=== PATIENT | female | born 1950 | race Caucasian/White ===

== ENCOUNTER 2017-04-04 09:20 | Day surgery (SDC) | payer OTHER, MEDICARE ==
[~2017-04-04 09:20] MED LIST: ALBU8HFA2 INH; ALBU90OI INH; ALBU90OI6 INH; CIPR500 PO; DIAZ5 PO; ENAHYD PO; FAMO40 PO; GLYB2.5 PO; HYDACE5 PO; HYDHOMSY PO; INSULANI SC; METF500 PO; METPRE4DP PO; ONDA4 PO; PRED20 PO; PROACE100 PO; TRAM50 PO
== END 2017-04-04 14:30 | disposition home or self-care (01) ==
LOC: WOUND 09:20
PROC: 0HBMXZZ Excision of Right Foot Skin, External Approach (ICD-10-PCS; principal; 2017-04-04)
DX: Z48.00 Encounter for change or removal of nonsurgical wound dressing (principal); E11.621 Type 2 diabetes mellitus with foot ulcer; L89.893 Pressure ulcer of other site, stage 3
CPT/HCPCS: 87070; 87075; 87205; G0463

== ENCOUNTER 2017-04-11 14:24 | Day surgery (SDC) | payer OTHER, MEDICARE | END 2017-04-11 17:08 | disposition home or self-care (01) | LOC: WOUND 14:24 | DX: Z48.00 Encounter for change or removal of nonsurgical wound dressing (principal); E11.621 Type 2 diabetes mellitus with foot ulcer; L89.893 Pressure ulcer of other site, stage 3 | CPT/HCPCS: G0463 ==

== ENCOUNTER 2017-04-22 14:35 | Day surgery (SDC) | payer OTHER, MEDICARE | END 2017-04-22 22:56 | disposition home or self-care (01) | LOC: WOUND 14:35 | PROC: 0KBV0ZZ Excision of Right Foot Muscle, Open Approach (ICD-10-PCS; principal; 2017-04-22) | DX: Z48.00 Encounter for change or removal of nonsurgical wound dressing (principal); E11.621 Type 2 diabetes mellitus with foot ulcer; L89.893 Pressure ulcer of other site, stage 3 | CPT/HCPCS: G0463 ==

== ENCOUNTER 2017-04-29 14:40 | Day surgery (SDC) | payer OTHER, MEDICARE | END 2017-04-29 17:29 | disposition home or self-care (01) | LOC: WOUND 14:40 | DX: Z48.00 Encounter for change or removal of nonsurgical wound dressing (principal); E11.621 Type 2 diabetes mellitus with foot ulcer; L89.893 Pressure ulcer of other site, stage 3 | CPT/HCPCS: G0463 ==

== ENCOUNTER 2017-05-06 10:09 | Day surgery (SDC) | payer OTHER, MEDICARE | END 2017-05-06 23:25 | disposition home or self-care (01) | LOC: WOUND 10:09 | PROC: 0HBMXZZ Excision of Right Foot Skin, External Approach (ICD-10-PCS; principal; 2017-05-06) | DX: Z48.00 Encounter for change or removal of nonsurgical wound dressing (principal); E11.621 Type 2 diabetes mellitus with foot ulcer; L89.893 Pressure ulcer of other site, stage 3 ==

== ENCOUNTER 2017-05-09 08:35 | Day surgery (SDC) | payer OTHER, MEDICARE ==
[~2017-05-09] VITALS: Ht 170.2 cm; Wt 114.0 kg
[2017-05-09] MEDS ORDERED: PREG75 (09:00)
[2017-05-09] MEDS ORDERED: CIPR750 (09:00)
[2017-05-09] MEDS ORDERED: Sulfamethoxazo1 EAC4 (09:01)
== END 2017-05-09 11:59 | disposition home or self-care (01) ==
LOC: ORSCSDS 08:35
PROVIDERS: Podiatrist Foot & Ankle Surgery
PROC: 0Y6U0Z0 Detachment at Left 3rd Toe, Complete, Open Approach (ICD-10-PCS; principal; 2017-05-09 12:30)
DX: M86.9 Osteomyelitis, unspecified (principal); E11.9 Type 2 diabetes mellitus without complications; E78.5 Hyperlipidemia, unspecified; I10 Essential (primary) hypertension; G47.33 Obstructive sleep apnea (adult) (pediatric); Z79.82 Long term (current) use of aspirin; Z79.84 Long term (current) use of oral hypoglycemic drugs; Z79.899 Other long term (current) drug therapy
CPT/HCPCS: 82947; 88305; 88311; J0171; J0690; J2250; J3010; J7120

== ENCOUNTER 2017-05-23 00:41 | Day surgery (SDC) | payer OTHER, MEDICARE ==
[~2017-05-23 00:41] MED LIST changes: +CIPR750; +PREG75; +Sulfamethoxazo1 EAC4
== END 2017-05-23 22:00 | disposition home or self-care (01) ==
LOC: WOUND 00:41
DX: Z48.00 Encounter for change or removal of nonsurgical wound dressing (principal); E11.621 Type 2 diabetes mellitus with foot ulcer; L89.893 Pressure ulcer of other site, stage 3
CPT/HCPCS: G0463

== ENCOUNTER 2017-08-04 13:01 | Day surgery (SDC) | payer OTHER, MEDICARE ==
[~2017-08-04] VITALS: Ht 170.2 cm; Wt 114.4 kg
[2017-08-04] MEDS ORDERED: ASPI325 PO (14:03)
[2017-08-04] MEDS ORDERED: ALLO300 PO (14:03)
[2017-08-04] MEDS ORDERED: Flonase 0.05% N16 GM (14:03)
[2017-08-04] MEDS ORDERED: ALBU2.5V5 (14:04)
== END 2017-08-04 18:32 | disposition home or self-care (01) ==
LOC: ORSCSDS 13:01
PROVIDERS: Podiatrist Foot & Ankle Surgery
PROC: 0SGM04Z Fusion of Right Metatarsal-Phalangeal Joint with Internal Fixation Device, Open Approach (ICD-10-PCS; principal; 2017-08-04 14:30)
PROC: 0L8N0ZZ Division of Right Lower Leg Tendon, Open Approach (ICD-10-PCS; principal; 2017-08-04 14:30)
DX: M20.11 Hallux valgus (acquired), right foot (principal); M21.6X1 Other acquired deformities of right foot; E11.621 Type 2 diabetes mellitus with foot ulcer; L97.519 Non-pressure chronic ulcer of other part of right foot with unspecified severity; I10 Essential (primary) hypertension; E78.5 Hyperlipidemia, unspecified; G47.33 Obstructive sleep apnea (adult) (pediatric); E66.01 Morbid (severe) obesity due to excess calories; Z68.41 Body mass index [BMI] 40.0-44.9, adult; Z79.4 Long term (current) use of insulin; Z79.82 Long term (current) use of aspirin; Z79.899 Other long term (current) drug therapy
CPT/HCPCS: 82947; C1713; J0171; J0690; J2250; J2710; J3010; J7120

== ENCOUNTER 2017-08-05 00:43 | Emergency (ER) | payer OTHER, MEDICARE ==
[~2017-08-05] VITALS: Ht 170.2 cm; Wt 114.3 kg
[~2017-08-05 00:43] MED LIST changes: +ALBU2.5V5; +ALLO300 PO; +ASPI325 PO; +Flonase 0.05% N16 GM
[2017-08-05 02:35] LABS: PCO2 Arterial 35.2 mmHg (35-45); PO2 Arterial 66.5 mmHg (80-100); pH Blood Arterial 7.42 (7.35-7.45)
[2017-08-05 02:58] LABS: BASOPHILS ABSOLUTE AUTO 0.05 K/mm3 (0.00-0.23); BASOPHILS PERCENT AUTO 0 % (0-2); EOSINOPHILS ABSOLUTE AUTO 0.05 K/mm3 (0.00-0.68); EOSINOPHILS PERCENT AUTO 0 % (0-6); Hematocrit 35.6 % (33.0-51.0); Hemoglobin 11.6 g/dL (11.5-16.0); IMMATURE GRAN ABSOLUTE AUTO 0.08 K/mm3 (0.00-0.10); IMMATURE GRAN PERCENT AUTO 1 % (0-1); LYMPHOCYTES ABSOLUTE AUTO 1.58 K/mm3 (0.84-5.20); LYMPHOCYTES PERCENT AUTO 13 % (21-46); MONOCYTES PERCENT AUTO 7 % (4-13); Mean Corpuscular HGB 27.3 pg (26.0-34.0); Mean Corpuscular HGB Conc 32.6 g/dL (31.5-36.5); Mean Corpuscular Volume 84 fL (80-100); Mean Platelet Volume 10.6 fL (9.1-12.4); NEUTROPHILS ABSOLUTE AUTO 9.73 K/mm3 (1.96-9.15); NEUTROPHILS PERCENT AUTO 79 % (41-73); Platelet Count 374 K/mm3 (150-400); RDW Coefficient Variation 15.9 % (11.7-14.2); RDW Standard Deviation 48.2 fL (35.1-46.3); Red Blood Cell Count 4.25 M/mm3 (3.80-5.20); White Blood Cell Count 12.39 K/mm3 (4.00-11.30)
[2017-08-05 03:07] LABS: Albumin, Blood 3.3 g/dL (3.4-5.0); Albumin/Globulin Ratio 0.8 (0.8-1.8); Bilirubin, Total 0.2 mg/dL (0.1-1.0); Bun/Creatinine Ratio 23.6 (12.0-20.0); Calcium, Blood 8.8 mg/dL (8.5-10.1); Creatinine, Blood 1.06 mg/dL (0.40-1.00); Globulin, Blood 4.1 g/dL (2.2-4.0); Potassium, Blood 4.5 mmol/L (3.5-5.5); Total Protein, Blood 7.4 g/dL (6.4-8.2)
== END 2017-08-05 05:30 | disposition home or self-care (01) ==
LOC: ER 00:43
PROVIDERS: Emergency Medicine
DX: J02.9 Acute pharyngitis, unspecified (principal); E11.9 Type 2 diabetes mellitus without complications; I10 Essential (primary) hypertension; Z88.1 Allergy status to other antibiotic agents; Z88.5 Allergy status to narcotic agent; Z79.899 Other long term (current) drug therapy; Z79.4 Long term (current) use of insulin; Z79.82 Long term (current) use of aspirin
CPT/HCPCS: 36415; 36600; 70490; 71046; 80053; 82803; 85025; 93005; 93010; 96374; 96375; 99284; J2405; J2930; J3010

== ENCOUNTER → 2022-08-01 | Outpatient (CLI) | payer BC, MEDICARE ==
[2022-08-01 21:07] LABS: Microalb/Creat Ratio UR, Rand 20.709 mg/g (0.000-30.000); Microalbumin, Random Urine 26.3 mg/L (0.000-20.000)
== END | disposition home or self-care (01) ==
LOC: LAB SHORT 14:30
PROVIDERS: Physician Assistant Medical
DX: E11.65 Type 2 diabetes mellitus with hyperglycemia (principal); E11.43 Type 2 diabetes mellitus with diabetic autonomic (poly)neuropathy
CPT/HCPCS: 82043; 82570

== ENCOUNTER → 2024-01-01 | Outpatient (CLI) | payer BC, MEDICARE ==
[2024-01-01 16:13] LABS: BASOPHILS ABSOLUTE AUTO 0.03 K/mm3 (0.00-0.23); BASOPHILS PERCENT AUTO 0 % (0-2); EOSINOPHILS ABSOLUTE AUTO 0.16 K/mm3 (0.00-0.68); EOSINOPHILS PERCENT AUTO 2 % (0-6); Hematocrit 39.2 % (33.0-51.0); Hemoglobin 13.2 g/dL (11.5-16.0); IMMATURE GRAN ABSOLUTE AUTO 0.04 K/mm3 (0.00-0.10); IMMATURE GRAN PERCENT AUTO 0 % (0-1); LYMPHOCYTES ABSOLUTE AUTO 2.66 K/mm3 (0.84-5.20); LYMPHOCYTES PERCENT AUTO 26 % (21-46); MONOCYTES ABSOLUTE AUTO 0.71 K/mm3 (0.16-1.47); MONOCYTES PERCENT AUTO 7 % (4-13); Mean Corpuscular HGB 28.5 pg (26.0-34.0); Mean Corpuscular HGB Conc 33.7 g/dL (31.5-36.5); Mean Corpuscular Volume 85 fL (80-100); Mean Platelet Volume 10.8 fL (9.1-12.4); NEUTROPHILS ABSOLUTE AUTO 6.81 K/mm3 (1.96-9.15); NEUTROPHILS PERCENT AUTO 65 % (41-73); Platelet Count 324 K/mm3 (150-400); RDW Coefficient Variation 14.4 % (11.7-14.2); RDW Standard Deviation 44.3 fL (35.1-46.3); Red Blood Cell Count 4.63 M/mm3 (3.80-5.20); White Blood Cell Count 10.41 K/mm3 (4.00-11.30)
[2024-01-01 16:24] LABS: Albumin, Blood 3.3 g/dL (3.4-5.0); Albumin/Globulin Ratio 0.9 (0.8-1.8); Bilirubin, Total 0.3 mg/dL (0.1-1.0); Bun/Creatinine Ratio 17.6 (12.0-20.0); Calcium, Blood 9.1 mg/dL (8.5-10.1); Creatinine, Blood 1.02 mg/dL (0.40-1.00); Globulin, Blood 3.7 g/dL (2.2-4.0); Potassium, Blood 4.4 mmol/L (3.5-5.5)
== END | disposition home or self-care (01) ==
LOC: LAB 16:09 → LAB SHORT 16:09
PROVIDERS: Physician Assistant
DX: R10.32 Left lower quadrant pain (principal); N39.0 Urinary tract infection, site not specified
CPT/HCPCS: 80053; 83690; 85025; 87086

== ENCOUNTER 2024-01-17 12:35 | Emergency (ER) | payer BC, MEDICARE ==
[~2024-01-17] VITALS: Ht 170.2 cm; Wt 117.5 kg
[2024-01-17 13:22] LABS: BASOPHILS ABSOLUTE AUTO 0.05 K/mm3 (0.00-0.23); BASOPHILS PERCENT AUTO 1 % (0-2); EOSINOPHILS ABSOLUTE AUTO 0.11 K/mm3 (0.00-0.68); EOSINOPHILS PERCENT AUTO 1 % (0-6); Hematocrit 41.2 % (33.0-51.0); Hemoglobin 13.7 g/dL (11.5-16.0); IMMATURE GRAN ABSOLUTE AUTO 0.04 K/mm3 (0.00-0.10); IMMATURE GRAN PERCENT AUTO 0 % (0-1); LYMPHOCYTES ABSOLUTE AUTO 2.05 K/mm3 (0.84-5.20); LYMPHOCYTES PERCENT AUTO 22 % (21-46); MONOCYTES ABSOLUTE AUTO 0.57 K/mm3 (0.16-1.47); MONOCYTES PERCENT AUTO 6 % (4-13); Mean Corpuscular HGB 28.1 pg (26.0-34.0); Mean Corpuscular HGB Conc 33.3 g/dL (31.5-36.5); Mean Corpuscular Volume 84 fL (80-100); NEUTROPHILS PERCENT AUTO 70 % (41-73); Platelet Count 339 K/mm3 (150-400); RDW Standard Deviation 43.1 fL (35.1-46.3); Red Blood Cell Count 4.88 M/mm3 (3.80-5.20); White Blood Cell Count 9.52 K/mm3 (4.00-11.30)
[2024-01-17 13:43] LABS: Albumin, Blood 3.4 g/dL (3.4-5.0); Albumin/Globulin Ratio 0.9 (0.8-1.8); Bilirubin, Total 0.4 mg/dL (0.1-1.0); Bun/Creatinine Ratio 22.8 (12.0-20.0); Calcium, Blood 9.1 mg/dL (8.5-10.1); Creatinine, Blood 1.01 mg/dL (0.40-1.00); Globulin, Blood 3.6 g/dL (2.2-4.0); Potassium, Blood 4.4 mmol/L (3.5-5.5)
[2024-01-17] MEDS ORDERED: Ondansetron HCl 2 MG / ML 2ML Vial IV ONE (15:25)
[2024-01-17] MEDS ORDERED: FentaNYL Citrate 50 MCG/ML 2 ML Injection IV ONE (15:25)
[2024-01-17 16:00] VITALS: BP 135/65
[2024-01-17] MEDS ORDERED: HYDR1TAB94 PO (16:02)
== END 2024-01-17 16:35 | disposition home or self-care (01) ==
LOC: ER 12:35
PROVIDERS: Student in an Organized Health Care Education/Training Program
DX: K80.70 Calculus of gallbladder and bile duct without cholecystitis without obstruction (principal); Z88.5 Allergy status to narcotic agent; Z88.1 Allergy status to other antibiotic agents; Z79.899 Other long term (current) drug therapy; Z79.84 Long term (current) use of oral hypoglycemic drugs; Z79.4 Long term (current) use of insulin; Z79.82 Long term (current) use of aspirin; E11.9 Type 2 diabetes mellitus without complications; I10 Essential (primary) hypertension
CPT/HCPCS: 76705; 80053; 83690; 84484; 85025; 93005; 93010; 96374; 96375; 99284-25; J2405; J3010

== ENCOUNTER 2024-07-01 09:04 | Day surgery (SDC) | payer BC, MEDICARE ==
[~2024-07-01] VITALS: Ht 170.2 cm; Wt 114.4 kg
[~2024-07-01 09:04] MED LIST changes: +BASAGLAR K100 UNIT/1 SC; +HYDR1TAB94 PO; -INSULANI SC; +Lactated Ringer's 1,000 ML IV SCH
[2024-07-01 09:59] VITALS: BP 181/72
--- NOTE | 2024-07-01 10:13 | NUR ---
History, Chart, Medications and Allergies reviewed before start of procedure. Lungs clear T/O to Auscultation. Patient confirms NPO status and agrees with scheduled surgery. Patient states colon prep results clear BUT REPORTS ON "POCKET" OF BROWN THIS MORNING. Pre-Op teaching done. Pt verbalizes understanding.
[2024-07-01] MEDS ORDERED: propofoL 40 ML IV ONE (10:36)
--- NOTE | 2024-07-01 10:49 | NUR ---
07/01/24 1049 Myla Johnson History, Chart, Medications and Allergies reviewed before start of procedure.MONITOR INTACT WITH CONTINUOUS PULSE OXIMETRY, CONTINUOUS END TITAL CO2, 3-LEAD EKG AND INTERMITTENT BLOOD PRESSURE.3-LEAD EKG REVIEWED WITH PHYSICIAN PRIOR TO START OF PROCEDURE.O2 VIA POM INTACT THROUGHOUT SEDATION/PROCEDURE.Bite Block Placed. DR. SALAZAR PROVIDING MAC.
[2024-07-01 11:36] VITALS: BP 138/61
[2024-07-01 11:45] VITALS: BP 139/71
--- NOTE | 2024-07-01 12:03 | NUR ---
Up with SBA assist. Slightly stable on feet. Discharge instructions reviewed with patient. Patient verbalizes understanding. Copy given to patient to take home. Patient States Post-Procedure ride home has been arranged. Discharged via wheelchair to private car for ride home.
== END 2024-07-01 11:59 | disposition home or self-care (01) ==
LOC: ORSCMMR 09:04 → ORD 10:30 → ORSCMMR 10:30
PROVIDERS: Internal Medicine Gastroenterology
PROC: 0DBH8ZX Excision of Cecum, Via Natural or Artificial Opening Endoscopic, Diagnostic (ICD-10-PCS; principal; 2024-07-01 10:30)
PROC: 0DB78ZX Excision of Stomach, Pylorus, Via Natural or Artificial Opening Endoscopic, Diagnostic (ICD-10-PCS; principal; 2024-07-01 10:30)
PROC: 0DBN8ZX Excision of Sigmoid Colon, Via Natural or Artificial Opening Endoscopic, Diagnostic (ICD-10-PCS; principal; 2024-07-01 10:30)
PROC: 0DB48ZX Excision of Esophagogastric Junction, Via Natural or Artificial Opening Endoscopic, Diagnostic (ICD-10-PCS; principal; 2024-07-01 10:30)
PROC: 0DB98ZX Excision of Duodenum, Via Natural or Artificial Opening Endoscopic, Diagnostic (ICD-10-PCS; principal; 2024-07-01 10:30)
PROC: 0DBL8ZX Excision of Transverse Colon, Via Natural or Artificial Opening Endoscopic, Diagnostic (ICD-10-PCS; principal; 2024-07-01 10:30)
DX: R10.33 Periumbilical pain (principal); R10.13 Epigastric pain; K29.80 Duodenitis without bleeding; K21.9 Gastro-esophageal reflux disease without esophagitis; D12.0 Benign neoplasm of cecum; K63.5 Polyp of colon; K57.30 Diverticulosis of large intestine without perforation or abscess without bleeding; I10 Essential (primary) hypertension; E11.9 Type 2 diabetes mellitus without complications; Z79.4 Long term (current) use of insulin; Z79.899 Other long term (current) drug therapy; E66.01 Morbid (severe) obesity due to excess calories; Z68.41 Body mass index [BMI] 40.0-44.9, adult
CPT/HCPCS: 82947; 88305; 88342; J2704; J7120

== ENCOUNTER 2025-01-22 14:13 | Inpatient (IN) | payer MEDICARE, OTHER ==
[~2025-01-22] VITALS: Ht 170.2 cm; Wt 113.7 kg
[~2025-01-22 14:13] MED LIST changes: -Lactated Ringer's 1,000 ML IV SCH
[2025-01-22 14:45] LABS: BASOPHILS ABSOLUTE AUTO 0.04 K/mm3 (0.00-0.23); BASOPHILS PERCENT AUTO 0 % (0-2); EOSINOPHILS ABSOLUTE AUTO 0.23 K/mm3 (0.00-0.68); EOSINOPHILS PERCENT AUTO 2 % (0-6); Hematocrit 44.5 % (33.0-51.0); Hemoglobin 15.0 g/dL (11.5-16.0); IMMATURE GRAN ABSOLUTE AUTO 0.03 K/mm3 (0.00-0.10); IMMATURE GRAN PERCENT AUTO 0 % (0-1); LYMPHOCYTES ABSOLUTE AUTO 2.64 K/mm3 (0.84-5.20); LYMPHOCYTES PERCENT AUTO 25 % (21-46); MONOCYTES ABSOLUTE AUTO 0.65 K/mm3 (0.16-1.47); MONOCYTES PERCENT AUTO 6 % (4-13); Mean Corpuscular HGB Conc 33.7 g/dL (31.5-36.5); Mean Corpuscular Volume 85 fL (80-100); NEUTROPHILS ABSOLUTE AUTO 6.84 K/mm3 (1.96-9.15); NEUTROPHILS PERCENT AUTO 66 % (41-73); NRBC ABSOLUTE 0.00 K/mm3 (0.00-0.02); NRBC Auto 0.0 /100 WBC (0.0-0.2); Platelet Count 346 K/mm3 (150-400); RDW Coefficient Variation 14.1 % (11.7-14.2); RDW Standard Deviation 43.8 fL (35.1-46.3)
[2025-01-22 15:03] LABS: Alanine Aminotransfer (ALT/SGP 23.0 U/L (12-78); Albumin, Blood 3.6 g/dL (3.4-5.0); Albumin/Globulin Ratio 1.0 (0.8-1.8); Anion Gap 9.0 mmol/L (3-11); Aspartate Aminotrans (AST/SGOT 17.0 U/L (12-37); Bilirubin, Total 0.4 mg/dL (0.1-1.0); Blood Urea Nitrogen 23.0 mg/dL (8-24); CO2, Blood 25.0 mmol/L (21-32); Calcium, Blood 9.0 mg/dL (8.5-10.1); Chloride, Blood 106.0 mmol/L (98-108); Creatinine, Blood 0.88 mg/dL (0.40-1.00); Globulin, Blood 3.7 g/dL (2.2-4.0); Glucose, Blood 259.0 mg/dL (70-99); Potassium, Blood 4.1 mmol/L (3.5-5.5); Sodium, Blood 136.0 mmol/L (136-145); Total Protein, Blood 7.3 g/dL (6.4-8.2)
[2025-01-22] MEDS ORDERED: HydrALAZINE HCl 20 MG / ML 1ML Vial IV PRN ×2 (16:25→18:50)
[2025-01-22] MEDS ORDERED: Insulin Regular 100 UNIT/ML 10ML Vial SC SCH (16:30)
[2025-01-22] MEDS ORDERED: FLU VACC TS2025(65UP)/MF59C/PF 45 MCG/0.5 ML SYRINGE IM SCH (16:40)
[2025-01-22 17:39] LABS: CHOL/HDL RATIO 5.3; Cholesterol 279 mg/dL (50-200); HDL Cholesterol 53 mg/dL (>39); LDL/HDL RATIO 3.6; Low Density Lipoprotein Chol 191 mg/dL (0-110); Triglycerides 176 mg/dL (30-160); Very Low Density Lipoprot Chol 35 mg/dL (6-32)
[2025-01-22 18:30] VITALS: BP 208/71
--- NOTE | 2025-01-22 19:18 | NUR ---
ADMISSION NOTE: PATIENT ARRIVES TO ROOM VIA GURNEY AT 1805 FROM ER FOR DX'S OF CVA. PATIENT TRANSFERRED TO BATHROOM c 1 ASSIST, GAITBELT AND FWW. PATIENT ADMISSION, MEDRIC AND SKIN ASSESSMENT COMPLETED. PATIENT DENIES CP/PRESSURE, SOB, N/V AND DIZZINESS. PATIENT ADMISSION VITALS TAKEN SBP-208/71, HR-[address] ROJO[address] RECEIVED ORDER FOR PERMISSIVE HYPERTENSIVE AND TO GIVE IV HYDRALAZINE c SBP MORE THAN 200. PATIENT ON TELE, SR HR IN THE 80'S BPM. PATIENT REPORTS NUMBNESS TO R SIDE FACE, R HAND AND FEET. PATIENT STRENGTH ARE EQUAL TO ALL EXTREMITIES. PATIENT A/OX4, ANSWER TO QUESTIONS APPROPRIATELY, FOLLOWING COMMANDS AND COOPERATIVE c CARE. PATIENT HAS PIV TO RAC SL. BED IN LOWEST POSITION. CALL LIGHT IN REACH. BEDSIDE REPORTS GIVEN TO AMIE RN'S.
[2025-01-22 19:37] VITALS: BP 178/69
[2025-01-22 23:06] VITALS: BP 160/90
[2025-01-23 03:16] VITALS: BP 161/63
[2025-01-23 04:50] LABS: BASOPHILS ABSOLUTE AUTO 0.04 K/mm3 (0.00-0.23); BASOPHILS PERCENT AUTO 0 % (0-2); EOSINOPHILS ABSOLUTE AUTO 0.27 K/mm3 (0.00-0.68); EOSINOPHILS PERCENT AUTO 3 % (0-6); Hematocrit 43.1 % (33.0-51.0); Hemoglobin 14.4 g/dL (11.5-16.0); IMMATURE GRAN ABSOLUTE AUTO 0.04 K/mm3 (0.00-0.10); IMMATURE GRAN PERCENT AUTO 0 % (0-1); LYMPHOCYTES ABSOLUTE AUTO 3.00 K/mm3 (0.84-5.20); LYMPHOCYTES PERCENT AUTO 29 % (21-46); MONOCYTES ABSOLUTE AUTO 0.82 K/mm3 (0.16-1.47); MONOCYTES PERCENT AUTO 8 % (4-13); Mean Corpuscular HGB Conc 33.4 g/dL (31.5-36.5); Mean Corpuscular Volume 85 fL (80-100); NEUTROPHILS ABSOLUTE AUTO 6.05 K/mm3 (1.96-9.15); NEUTROPHILS PERCENT AUTO 59 % (41-73); NRBC ABSOLUTE 0.00 K/mm3 (0.00-0.02); NRBC Auto 0.0 /100 WBC (0.0-0.2); Platelet Count 330 K/mm3 (150-400); RDW Coefficient Variation 14.2 % (11.7-14.2); RDW Standard Deviation 44.0 fL (35.1-46.3)
[2025-01-23 05:11] LABS: Anion Gap 9.0 mmol/L (3-11); Blood Urea Nitrogen 18.0 mg/dL (8-24); CO2, Blood 24.0 mmol/L (21-32); Calcium, Blood 9.0 mg/dL (8.5-10.1); Chloride, Blood 109.0 mmol/L (98-108); Creatinine, Blood 0.74 mg/dL (0.40-1.00); Glucose, Blood 134.0 mg/dL (70-99); Potassium, Blood 3.7 mmol/L (3.5-5.5); Sodium, Blood 138.0 mmol/L (136-145)
[2025-01-23 07:37] VITALS: BP 174/69
[2025-01-23] MEDS ORDERED: Enoxaparin 40 MG/0.4 ML SYR SC SCH (09:00)
[2025-01-23 11:22] VITALS: BP 170/74
[2025-01-23 15:05] VITALS: BP 140/72
[2025-01-23] MEDS ORDERED: Magnesium Hydroxide Conc 10 ML UDC PO PRN (17:25)
[2025-01-23] MEDS ORDERED: Insulin Glargine 100 Unit/ML 3 ML SYR SC SCH (17:26)
--- NOTE | 2025-01-23 18:14 | NUR ---
END OF SHIFT NOTE PATIENT HAD SOME ELEVATED BLOOD PRESSURES TODAY, TREATED BY EMAR,BOWEL CARE STARTED ALSO. PATIENT AT BEDSIDE EATING DINNER WITH FAMILY PRESENT IN THE ROOM. TALKED ABOUT POSSIBLE D/C TOMORROW. MRI DONE TODAY. PATIENT AMBULATED TO BATHROOM WITH FWW AND 1PERSON ASSIST. PATIENT REMAINS A&OX3. CALL LIGHT IN REACH.
[2025-01-23 19:47] VITALS: BP 164/71
[2025-01-23 23:46] VITALS: BP 146/54
[2025-01-24 03:22] VITALS: BP 117/64
--- NOTE | 2025-01-24 03:53 | NUR ---
NIH SCORE ALERT THIS RN ALERTED NIGHT DOC OF CHANGE FROM LAST NOC SHIFT, DOCTOR INFORMED THIS RN WAS TOLD TO PASS TO ONCOMING PRIMARY DAY DOCTOR OF CHANGES. REASSESSED LATER IN SHIFT ACCORDING TO PROTOCOL, IS NOW 5 POINTS HIGHER. NEW ENVIRONMENTAL CONSERVATION OFFICER DOCTOR (CYNDI) NOTIFIED. WILL CONTINUE TO ASSESS.
--- NOTE | 2025-01-24 05:47 | NUR ---
SHIFT SUMMARY PATIENT WAS A&OX3 AT START OF SHIFT, DURING A NIH STROKE SCALE PATIENT BECAME ONLY ORIENTED TO SELF, NIH SCORE HAD RAISED SINCE LAST NOC SHIFT, LET FIRST DOCUMENTATION LEAD DOC KNOW DURING A CALL ALONG WITH CONSTIPATION THAT WAS CAUSING THE PATIENT TO FEEL "ILL." PATIENT THEN HAD A SMALL MOVEMENT AND FELT MUCH "BETTER." LATER IN SHIFT NIH STROKE SCALE JUMPED BY 5 POINTS TO A TOTAL OF 14. CALL DOCTOR CYNDI AND THE DOCTOR CAME UP AND ASSESSED AND ORDERED A STAT CT TO RULE OUT HEMMORRHAGIC STROKE, DOCTOR DE LA GARZA CALLED AND NO EVIDENCE OF EVOLVING HEMMORRHAGIC STROKE. PATIENT IS NOW RESTING AT NSR 85 WITH NO EVIDENCE OF DISTRESS. PATIENT HAS BECOME A 2STBA DURING OUR SHIFT DUE TO ORIENTATION AND WEAKNESS. BED ALARM IS ON, CALL LIGHT IS WITHIN REACH, ABLE TO MAKE NEEDS KNOWN AT THIS TIME, PATIENT CALLS APPROPRIATELY. BED ALARM IS ON DUE TO POTENTIAL CONFUSION ISSUES. BED RAILS UP X3, BED AT LOWEST POSITION.
[2025-01-24 07:12] LABS: BASOPHILS ABSOLUTE AUTO 0.07 K/mm3 (0.00-0.23); BASOPHILS PERCENT AUTO 1 % (0-2); EOSINOPHILS ABSOLUTE AUTO 0.32 K/mm3 (0.00-0.68); EOSINOPHILS PERCENT AUTO 3 % (0-6); Hematocrit 42.3 % (33.0-51.0); Hemoglobin 14.1 g/dL (11.5-16.0); IMMATURE GRAN ABSOLUTE AUTO 0.03 K/mm3 (0.00-0.10); IMMATURE GRAN PERCENT AUTO 0 % (0-1); LYMPHOCYTES ABSOLUTE AUTO 2.93 K/mm3 (0.84-5.20); LYMPHOCYTES PERCENT AUTO 31 % (21-46); MONOCYTES ABSOLUTE AUTO 0.77 K/mm3 (0.16-1.47); MONOCYTES PERCENT AUTO 8 % (4-13); Mean Corpuscular HGB Conc 33.3 g/dL (31.5-36.5); Mean Corpuscular Volume 84 fL (80-100); NEUTROPHILS ABSOLUTE AUTO 5.28 K/mm3 (1.96-9.15); NEUTROPHILS PERCENT AUTO 56 % (41-73); NRBC ABSOLUTE 0.00 K/mm3 (0.00-0.02); NRBC Auto 0.0 /100 WBC (0.0-0.2); Platelet Count 304 K/mm3 (150-400); RDW Coefficient Variation 14.2 % (11.7-14.2); RDW Standard Deviation 43.6 fL (35.1-46.3)
[2025-01-24 07:27] VITALS: BP 147/65
[2025-01-24 07:29] LABS: Prothrombin Time Results 11.6 Sec (9.7-11.5)
[2025-01-24 07:42] LABS: Anion Gap 10.0 mmol/L (3-11); Blood Urea Nitrogen 24.0 mg/dL (8-24); CO2, Blood 24.0 mmol/L (21-32); Calcium, Blood 8.9 mg/dL (8.5-10.1); Chloride, Blood 108.0 mmol/L (98-108); Creatinine, Blood 0.85 mg/dL (0.40-1.00); Glucose, Blood 133.0 mg/dL (70-99); Potassium, Blood 3.7 mmol/L (3.5-5.5); Sodium, Blood 138.0 mmol/L (136-145)
[2025-01-24 11:45] VITALS: BP 136/68
--- NOTE | 2025-01-24 15:38 | NUR ---
Patient is lying in bed and alert. She tells me about the strokes that she has had and the symptoms that she displays. She then talks at length about the of her spouse, Jose, her sister Nakia, her dad, her other sister and her brother all in the last couple of yrs. She is tearful at times. She finds comfort in her abel and her two grown sons. She tells me that she has good support but struggles with those losses. We explored healthy ways to grieve, ways to find meaning and ways reframe her current situation. I provided therapeutic listening, grief support and prayer. The patient responded well and showed signs of catharsis and greater peaece. I will continue to remain available to the patient and family.
[2025-01-24 15:48] VITALS: BP 145/70
--- NOTE | 2025-01-24 18:50 | NUR ---
THIS CASTING TESTER HAS REVIEWED AND AGREES WITH ALL NOTES AND ASSESSMENTS BY HEYDI STRATTON.
--- NOTE | 2025-01-24 18:50 | NUR ---
THIS ENVIRONMENTAL FIELD TEAM MEMBER HAS REVIEWED AND AGREES WITH ALL NOTES AND ASSESSMENTS BY HEYDI STRATTON.
--- NOTE | 2025-01-24 19:11 | NUR ---
SHIFT SUMMARY; PT A/OX3-4 AND 2 PERSON ASSIST TO BEDSIDE COMMODE AND POSITIONING. PT MEDICATED PER EMAR. ENEMA GIVEN AND AFFECTIVE. OT/SPEECH THERAPY WORKED WITH PT. SEE ASSESSMENT NOTES. THOMAS VISITED PT DUE TO EMOTIONAL DISTRESS W/ HER CURRENT SITUATION. JOSHUA, DAUGHTER OF PT HAS CONCERNS OF PT BEING ADMITTED TO SNF. CASE MANAGEMENT TO BE NOTIFIED. VSS. BEDLIGHT IN LOW POSITION WITH ALARM ON. CALL LIGHT WITHIN REACH.
[2025-01-24 20:26] VITALS: BP 163/62
[2025-01-24 20:29] VITALS: BP 153/53
[2025-01-25 00:17] VITALS: BP 150/62
[2025-01-25 04:04] VITALS: BP 118/88
--- NOTE | 2025-01-25 04:34 | NUR ---
SHIFT SUMMARY PATIENT A&OX 1-4 T/O SHIF, NEW NIH SCORE OF 12 AND NEW HEADACHE, DOCTOR MADE AWARE TO NEW CHANGES. WILL CONTINUE TO MONITOR, PATIENT HAS BEEN UP TO USE THE RESTROOM, ABLE TO MAKE NEEDS KNOWN, CALL LIGHT WITHIN REACH, BED RAILS UP X3, BED AT LOWEST POSITION, BED ALARM IS ON. PATIENT SLEPT SOLIDLY T/O SHIFT.
[2025-01-25 07:32] VITALS: BP 146/74
[2025-01-25 14:28] VITALS: BP 138/56
--- NOTE | 2025-01-25 16:59 | NUR ---
PATIENT UP TO CHAIR FOR MEALS AND THEN TO BED FOR REST. PATIENT WENT THRU PHASES DURING THIS SHIFT REMEMBERING AND ABLE TO ANSWER QUESTIONS APPROPRIATELY THEN FORGET OTHER TIMES. PATIENTS SISTER IS VERY ADIMENT THAT PATIENT DOES NOT GO TO REHAB. SISTER HAS CALLED THIS NURSE A FEW TIMES TODAY AND LEFT A MESSAGE STATING PATIENT BASICALLY NEEDS TO GO HOME. PATIENTS SISTER HAS CALLED THE PATIENT MULTIPLE TIMES TODAY WELL TELLING PATIENT "YOU TELL THEM YOU DO NOT NEED TO GO TO REHAB, YOU WANT TO GO HOME YOUR SON CAN CARE FOR YOU". PATIENTS SON CAME IN TODAY AND WAS UPSET THAT STAFF WOULD NOT GIVE PT PEPSI AND REFUSED DIET PEPSI. SON ASKED IF PT COULD EAT OUTSIDE SOURCED FOOD. THIS RN STATED YES BUT DIABETIC FOODS PT IS DIABETIC. SON BROUGHT PT BACK DOUGLAS CHAMORRO. PATIENT IS TELLING FAMILY SHE CAN SHOWER HERSELF AND FEELS BETTER BUT UNABLE TO SHOWER SELF AND NEEDS ASSISTANCE WITH DAILY CARES.
[2025-01-25 20:14] VITALS: BP 137/53
[2025-01-26 06:03] VITALS: BP 169/75
--- NOTE | 2025-01-26 06:39 | NUR ---
Shift Summary No acute changes. Pt able to ambulate to the BR using a FWW and 1 SBA. She was less confused about the date this morning, able to get the month and the year. I educated pt about the importance of controling her blood sugar when she's home as high blood sugar increases risk of stroke and other complications. Pt is saying she wants to go home and not to SNF.
[2025-01-26 07:44] VITALS: BP 156/67
[2025-01-26 15:31] VITALS: BP 152/83
[2025-01-26 19:46] VITALS: BP 148/79
[2025-01-27 00:36] VITALS: BP 187/64
[2025-01-27 04:02] VITALS: BP 149/57
--- NOTE | 2025-01-27 05:54 | NUR ---
PATIENT HAS BEEN HAVING DIFFICULTY SEEING OR COMPREHENDING ITEMS ON HER RIGHT SIDE. SHE REPORTS SHE IS GETTING CONFUSED AND DISORIENTED WITH THE BATHROOM IN HER ROOM SINCE IT KEEPS MOVING. SHE FEELS HER ROOM IS A MAZE DUE TO THE BATHROOM BEING MOVED. PT REPORTS SHE WOULD LIKE TO GO HOME TOMORROW. PT SLEPT T/O THE NIGHT.
[2025-01-27 07:45] VITALS: BP 155/60
[2025-01-27] MEDS ORDERED: ATOR80 PO (13:56)
[2025-01-27] MEDS ORDERED: CLOP75 PO (13:56)
[2025-01-27] MEDS ORDERED: LISI20 PO (13:57)
[2025-01-27] MEDS ORDERED: METF500 PO (13:57)
--- NOTE | 2025-01-27 14:33 | NUR ---
DISCHARGE NOTE PT D/C HOME AT 1410. PT AND PT'S FAMILY PROVIDED W/ VERBAL AND WRITTEN INSTRUCTIONS AND REPORTED UNDERSTANDING. PT A&OX3, VSS, AMB W/ ASSIST, TOLERATING PO, VOIDING, AND DENIED PAIN. BELONGINGS WERE RETURNED. PT ESCOURTED OUT VIA W/C BY THIS RN.
== END 2025-01-27 14:30 | disposition home health service (06) | DRG 65 ==
LOC: ER 14:13 → MEDS 16:24 → ER 16:24 → MEDS 17:59
PROVIDERS: Student in an Organized Health Care Education/Training Program; ADMIT Family Medicine
DX: I63.432 Cerebral infarction due to embolism of left posterior cerebral artery (principal); G81.93 Hemiplegia, unspecified affecting right nondominant side; R20.0 Anesthesia of skin; R20.2 Paresthesia of skin; R29.701 NIHSS score 1; I63.541 Cerebral infarction due to unspecified occlusion or stenosis of right cerebellar artery; E11.65 Type 2 diabetes mellitus with hyperglycemia; I10 Essential (primary) hypertension; H53.8 Other visual disturbances; E66.9 Obesity, unspecified; R29.714 NIHSS score 14; E78.5 Hyperlipidemia, unspecified; H53.461 Homonymous bilateral field defects, right side; Z79.85 Long-term (current) use of injectable non-insulin antidiabetic drugs; Z88.5 Allergy status to narcotic agent; Z88.8 Allergy status to other drugs, medicaments and biological substances; Z79.82 Long term (current) use of aspirin; Z87.19 Personal history of other diseases of the digestive system; Z90.89 Acquired absence of other organs; Z90.710 Acquired absence of both cervix and uterus; Z68.38 Body mass index [BMI] 38.0-38.9, adult; Z23 Encounter for immunization
CPT/HCPCS: 36415; 70450; 70496; 70498; 70551; 80048; 80053; 80061; 82947; 83036; 84443; 85025; 85610; 85730; 92523; 92526; 92610; 93306; 96374-59; 97116; 97162; 97165; 97530; 97535; 99285-25; A9270; G0378; J0360; J1650; J1815; Q9967

== ENCOUNTER 2025-03-01 11:30 | Inpatient (IN) | payer MEDICARE, OTHER ==
[~2025-03-01] VITALS: Ht 170.2 cm; Wt 107.9 kg
[~2025-03-01 11:30] MED LIST changes: +ATOR80 PO; +CLOP75 PO; +LISI20 PO
[2025-03-01 12:03] LABS: BASOPHILS ABSOLUTE AUTO 0.05 K/mm3 (0.00-0.23); BASOPHILS PERCENT AUTO 0 % (0-2); EOSINOPHILS ABSOLUTE AUTO 0.12 K/mm3 (0.00-0.68); EOSINOPHILS PERCENT AUTO 1 % (0-6); Hematocrit 41.6 % (33.0-51.0); Hemoglobin 14.7 g/dL (11.5-16.0); IMMATURE GRAN ABSOLUTE AUTO 0.04 K/mm3 (0.00-0.10); IMMATURE GRAN PERCENT AUTO 0 % (0-1); LYMPHOCYTES ABSOLUTE AUTO 2.46 K/mm3 (0.84-5.20); LYMPHOCYTES PERCENT AUTO 18 % (21-46); MONOCYTES ABSOLUTE AUTO 0.97 K/mm3 (0.16-1.47); MONOCYTES PERCENT AUTO 7 % (4-13); Mean Corpuscular HGB Conc 35.3 g/dL (31.5-36.5); Mean Corpuscular Volume 80 fL (80-100); NEUTROPHILS ABSOLUTE AUTO 10.30 K/mm3 (1.96-9.15); NEUTROPHILS PERCENT AUTO 74 % (41-73); NRBC ABSOLUTE 0.00 K/mm3 (0.00-0.02); NRBC Auto 0.0 /100 WBC (0.0-0.2); Platelet Count 416 K/mm3 (150-400); RDW Coefficient Variation 13.2 % (11.7-14.2); RDW Standard Deviation 38.0 fL (35.1-46.3)
[2025-03-01 12:30] LABS: Alanine Aminotransfer (ALT/SGP 27.0 U/L (12-78); Albumin, Blood 3.6 g/dL (3.4-5.0); Albumin/Globulin Ratio 1.0 (0.8-1.8); Anion Gap 12.0 mmol/L (3-11); Aspartate Aminotrans (AST/SGOT 12.0 U/L (12-37); Bilirubin, Total 0.6 mg/dL (0.1-1.0); Blood Urea Nitrogen 17.0 mg/dL (8-24); CO2, Blood 24.0 mmol/L (21-32); Calcium, Blood 9.4 mg/dL (8.5-10.1); Chloride, Blood 91.0 mmol/L (98-108); Creatinine, Blood 0.75 mg/dL (0.40-1.00); Globulin, Blood 3.5 g/dL (2.2-4.0); Glucose, Blood 237.0 mg/dL (70-99); Potassium, Blood 4.0 mmol/L (3.5-5.5); Sodium, Blood 123.0 mmol/L (136-145); Total Protein, Blood 7.1 g/dL (6.4-8.2)
[2025-03-01 12:33] LABS: Influenza A, PCR NEGATIVE (NEGATIVE); Influenza B, PCR NEGATIVE (NEGATIVE); Resp Syncytial Virus, PCR NEGATIVE (NEGATIVE); SARS-Cov-2 (COVID-19) PCR, MMC NEGATIVE (NEGATIVE)
[2025-03-01 14:00] LABS: Source, Urine Clean Catch
[2025-03-01] MEDS ORDERED: HydrALAZINE HCl 20 MG / ML 1ML Vial IV PRN (14:00)
[2025-03-01] MEDS ORDERED: NS 1,000 ML IV SCH (14:00)
[2025-03-01] MEDS ORDERED: FLU VACC TS2025(65UP)/MF59C/PF 45 MCG/0.5 ML SYRINGE IM SCH (14:05)
[2025-03-01 14:32] LABS: Bilirubin, Urine Neg (Neg); Color, Urine Yellow (P-Yellow); Glucose Qualitative, Urine 3+ (Neg); Ketones, Urine Neg (Neg); Leukocyte Esterase, Urine Neg (Neg); Protein, Urine 2+ (Neg); Specific Gravity, Urine 1.015 (1.003-1.022); Urobilinogen, Urine NORM (Normal)
[2025-03-01 14:41] LABS: Red Blood Cells, Urine 0-2 /hpf (0-2); White Blood Cells, Urine 0-2 /hpf (0-5)
[2025-03-01 15:47] VITALS: BP 167/69
[2025-03-01] MEDS ORDERED: Insulin Regular 100 UNIT/ML 10ML Vial SC SCH (16:30)
[2025-03-01 17:20] LABS: Anion Gap 11.0 mmol/L (3-11); Blood Urea Nitrogen 16.0 mg/dL (8-24); CO2, Blood 23.0 mmol/L (21-32); Calcium, Blood 9.4 mg/dL (8.5-10.1); Chloride, Blood 94.0 mmol/L (98-108); Creatinine, Blood 0.65 mg/dL (0.40-1.00); Glucose, Blood 167.0 mg/dL (70-99); Potassium, Blood 4.1 mmol/L (3.5-5.5); Sodium, Blood 124.0 mmol/L (136-145)
--- NOTE | 2025-03-01 18:22 | NUR ---
SHIFT SUMMARY PT A&OX4 AND FORGETFUL, SLIDE ASSIST TO BED FROM [facility], TOLERATING PO, AND DENIED PAIN. PT HYPERTENSIVE UPON ADMIT, MEDICATED PER EMAR W/ PRN. NS INFUSING PER ORDER. CALL LIGHT WITHIN REACH AND BED ALARM ON.
[2025-03-01 20:41] VITALS: BP 158/80
[2025-03-01 20:50] LABS: Anion Gap 13.0 mmol/L (3-11); Blood Urea Nitrogen 16.0 mg/dL (8-24); CO2, Blood 23.0 mmol/L (21-32); Calcium, Blood 8.5 mg/dL (8.5-10.1); Chloride, Blood 93.0 mmol/L (98-108); Creatinine, Blood 0.77 mg/dL (0.40-1.00); Glucose, Blood 253.0 mg/dL (70-99); Potassium, Blood 3.8 mmol/L (3.5-5.5); Sodium, Blood 125.0 mmol/L (136-145)
[2025-03-01] MEDS ORDERED: Miconazole Nitrate 2% 85 GM PWD TOP SCH (21:00)
[2025-03-01] MEDS ORDERED: Insulin Glargine 100 Unit/ML 3 ML SYR SC SCH (21:00)
[2025-03-01 23:33] VITALS: BP 158/61
[2025-03-02 00:32] LABS: Anion Gap 10.0 mmol/L (3-11); Blood Urea Nitrogen 17.0 mg/dL (8-24); CO2, Blood 25.0 mmol/L (21-32); Calcium, Blood 8.4 mg/dL (8.5-10.1); Chloride, Blood 98.0 mmol/L (98-108); Creatinine, Blood 0.72 mg/dL (0.40-1.00); Glucose, Blood 162.0 mg/dL (70-99); Potassium, Blood 3.7 mmol/L (3.5-5.5); Sodium, Blood 129.0 mmol/L (136-145)
[2025-03-02 03:41] VITALS: BP 171/60
[2025-03-02 04:03] LABS: BASOPHILS ABSOLUTE AUTO 0.04 K/mm3 (0.00-0.23); BASOPHILS PERCENT AUTO 0 % (0-2); EOSINOPHILS ABSOLUTE AUTO 0.24 K/mm3 (0.00-0.68); EOSINOPHILS PERCENT AUTO 2 % (0-6); Hematocrit 36.0 % (33.0-51.0); Hemoglobin 12.9 g/dL (11.5-16.0); IMMATURE GRAN ABSOLUTE AUTO 0.04 K/mm3 (0.00-0.10); IMMATURE GRAN PERCENT AUTO 0 % (0-1); LYMPHOCYTES ABSOLUTE AUTO 2.45 K/mm3 (0.84-5.20); LYMPHOCYTES PERCENT AUTO 24 % (21-46); MONOCYTES ABSOLUTE AUTO 0.91 K/mm3 (0.16-1.47); MONOCYTES PERCENT AUTO 9 % (4-13); Mean Corpuscular HGB Conc 35.8 g/dL (31.5-36.5); Mean Corpuscular Volume 80 fL (80-100); NEUTROPHILS ABSOLUTE AUTO 6.44 K/mm3 (1.96-9.15); NEUTROPHILS PERCENT AUTO 64 % (41-73); NRBC ABSOLUTE 0.00 K/mm3 (0.00-0.02); NRBC Auto 0.0 /100 WBC (0.0-0.2); Platelet Count 324 K/mm3 (150-400); RDW Coefficient Variation 13.3 % (11.7-14.2); RDW Standard Deviation 38.6 fL (35.1-46.3)
[2025-03-02 04:18] LABS: Anion Gap 10.0 mmol/L (3-11); Blood Urea Nitrogen 15.0 mg/dL (8-24); CO2, Blood 24.0 mmol/L (21-32); Calcium, Blood 8.2 mg/dL (8.5-10.1); Chloride, Blood 100.0 mmol/L (98-108); Creatinine, Blood 0.67 mg/dL (0.40-1.00); Glucose, Blood 111.0 mg/dL (70-99); Potassium, Blood 3.8 mmol/L (3.5-5.5); Sodium, Blood 130.0 mmol/L (136-145)
--- NOTE | 2025-03-02 06:15 | NUR ---
Shift Summary Pt A&O w intermittent forgetfulness, pleasant & able to make accurate needs known. Pt. c/o feeling of fullness & pressure in her bladder since the start of shift. Initial bladder scan = 1080 & was staight cath thereafter & drained 900 cc of clear yellow urine. Shortly prior to this note, pt. again c/o same bladder pressure/discomfort; was again bladder scanned = 1077 cc. Hospitalist was made aware of the condition, with orders to insert indwelling casey catheter. Fr#14 casey was inserted thereafter, and drained 1000 cc clear yellow urine. Catjeter intact and draining freely w stat-lock secured in place. Pt. verbalized relief, and in resting comfortably @ this time.
[2025-03-02 07:48] VITALS: BP 160/71
[2025-03-02] MEDS ORDERED: Enoxaparin 40 MG/0.4 ML SYR SC SCH (09:00)
[2025-03-02 09:24] LABS: Anion Gap 8.0 mmol/L (3-11); Blood Urea Nitrogen 14.0 mg/dL (8-24); CO2, Blood 24.0 mmol/L (21-32); Calcium, Blood 8.5 mg/dL (8.5-10.1); Chloride, Blood 101.0 mmol/L (98-108); Creatinine, Blood 0.66 mg/dL (0.40-1.00); Glucose, Blood 116.0 mg/dL (70-99); Potassium, Blood 4.0 mmol/L (3.5-5.5); Sodium, Blood 129.0 mmol/L (136-145)
[2025-03-02 11:25] VITALS: BP 135/53
[2025-03-02 12:55] LABS: Anion Gap 9.0 mmol/L (3-11); Blood Urea Nitrogen 16.0 mg/dL (8-24); CO2, Blood 24.0 mmol/L (21-32); Calcium, Blood 8.3 mg/dL (8.5-10.1); Chloride, Blood 101.0 mmol/L (98-108); Creatinine, Blood 0.69 mg/dL (0.40-1.00); Glucose, Blood 191.0 mg/dL (70-99); Potassium, Blood 4.0 mmol/L (3.5-5.5); Sodium, Blood 130.0 mmol/L (136-145)
[2025-03-02 16:20] VITALS: BP 133/58
--- NOTE | 2025-03-02 17:59 | NUR ---
SHIFT SUMMARY PT A&OX3 W/ JOVANYE IDEAS AND PARANOIA ABOUT CARE, VSS, AMB W/ 1-2P ASSIST TO THE CHAIR FOR MEALS, TOLERATING PO, VOIDING, AND DENIED PAIN. KEITH REMAINS IN PLACE DRAINING TO GRAVITY. PT STATED TO THIS RN, "I HOPE YOU KNOW WHEN I GO HOME. I AM NOT TAKING INSULIN. I DON'T WANT TO BE INSULIN DEPENDENT. INSULIN IS POISON." THIS RN EDUCATED PT ABOUT BLOOD GLUCOSE AND INSULIN. PT'S SON VISITED PT AND EXPRESSED TO THIS RN THAT HE CANNOT CARE FOR PT. NS CONT TO INFUSE PER ORDER. CALL LIGHT WITHIN REACH AND CHAIR ALARM ON FOR SAFETY.
[2025-03-02 19:22] VITALS: BP 150/62
[2025-03-02 22:57] VITALS: BP 188/74
[2025-03-03 03:48] VITALS: BP 171/71
[2025-03-03 04:46] LABS: BASOPHILS ABSOLUTE AUTO 0.06 K/mm3 (0.00-0.23); BASOPHILS PERCENT AUTO 1 % (0-2); EOSINOPHILS ABSOLUTE AUTO 0.36 K/mm3 (0.00-0.68); EOSINOPHILS PERCENT AUTO 4 % (0-6); Hematocrit 37.5 % (33.0-51.0); Hemoglobin 12.9 g/dL (11.5-16.0); IMMATURE GRAN ABSOLUTE AUTO 0.04 K/mm3 (0.00-0.10); IMMATURE GRAN PERCENT AUTO 0 % (0-1); LYMPHOCYTES ABSOLUTE AUTO 2.72 K/mm3 (0.84-5.20); LYMPHOCYTES PERCENT AUTO 27 % (21-46); MONOCYTES ABSOLUTE AUTO 0.86 K/mm3 (0.16-1.47); MONOCYTES PERCENT AUTO 9 % (4-13); Mean Corpuscular HGB Conc 34.4 g/dL (31.5-36.5); Mean Corpuscular Volume 83 fL (80-100); NEUTROPHILS ABSOLUTE AUTO 5.89 K/mm3 (1.96-9.15); NEUTROPHILS PERCENT AUTO 59 % (41-73); NRBC ABSOLUTE 0.00 K/mm3 (0.00-0.02); NRBC Auto 0.0 /100 WBC (0.0-0.2); Platelet Count 346 K/mm3 (150-400); RDW Coefficient Variation 13.6 % (11.7-14.2); RDW Standard Deviation 40.7 fL (35.1-46.3)
[2025-03-03 05:10] LABS: Anion Gap 9.0 mmol/L (3-11); Blood Urea Nitrogen 16.0 mg/dL (8-24); CO2, Blood 22.0 mmol/L (21-32); Calcium, Blood 8.6 mg/dL (8.5-10.1); Chloride, Blood 105.0 mmol/L (98-108); Creatinine, Blood 0.77 mg/dL (0.40-1.00); Glucose, Blood 152.0 mg/dL (70-99); Potassium, Blood 4.0 mmol/L (3.5-5.5); Sodium, Blood 132.0 mmol/L (136-145)
[2025-03-03 05:20] VITALS: BP 169/72
--- NOTE | 2025-03-03 06:11 | NUR ---
DATA REPORT ANALYST SUMMARY NO ACUTE CHANGES. PT A/OX3, FORGETFUL. PT HAS VERBAL TANGENTS, OFTEN IN LOOPS. MUCH OF THE TIME EXPRESSING SUSPICION OF MEDICAL INTERVENTIONS. PT VOCALIZING SHE DOES NOT WANT TO BE ON INSULIN AND SHE WANTS HER KEITH OUT SOON POSSIBLE. PROVIDED LISTENING AND EDUCATION ON INTERVENTIONS BEING PROVIDED. SON, SEGUNDO, AT BEDSIDE AT START OF SHIFT. PT RECALLS OFTEN THAT HER OF AN INFECTION CAUSED BY A INDWELLING KEITH CATHETER. CONTINUOUS FLUIDS CONTINUE. GFR TRENDED DOWN 10 POINTS PER MORNING LABS. SODIUM IMPROVED BUT REMAINS LOW. PT IS ABLE TO MAKE NEEDS KNOWN WHEN PROMPTED BUT IS FORGETFUL WITH WHEN/HOW TO USE THE CALL LIGHT. KEITH IS PATENT AND DRAINING TO GRAVITY. CALL LIGHT ACCESSIBLE. REGULAR INTERVAL ROUNDING AND CARE ONGOING.
[2025-03-03 07:30] VITALS: BP 149/61
[2025-03-03] MEDS ORDERED: Dextran/Hypromellose/Glycerin 15 DROP/ML BTL BOTHEYES PRN (10:35)
[2025-03-03 11:49] VITALS: BP 140/70
[2025-03-03 16:16] VITALS: BP 143/62
[2025-03-03 19:43] VITALS: BP 138/71
[2025-03-04 00:08] VITALS: BP 153/90
[2025-03-04 04:18] VITALS: BP 144/65
[2025-03-04 06:47] LABS: BASOPHILS ABSOLUTE AUTO 0.06 K/mm3 (0.00-0.23); BASOPHILS PERCENT AUTO 1 % (0-2); EOSINOPHILS ABSOLUTE AUTO 0.32 K/mm3 (0.00-0.68); EOSINOPHILS PERCENT AUTO 3 % (0-6); Hematocrit 38.4 % (33.0-51.0); Hemoglobin 13.0 g/dL (11.5-16.0); IMMATURE GRAN ABSOLUTE AUTO 0.04 K/mm3 (0.00-0.10); IMMATURE GRAN PERCENT AUTO 0 % (0-1); LYMPHOCYTES ABSOLUTE AUTO 2.52 K/mm3 (0.84-5.20); LYMPHOCYTES PERCENT AUTO 22 % (21-46); MONOCYTES ABSOLUTE AUTO 0.94 K/mm3 (0.16-1.47); MONOCYTES PERCENT AUTO 8 % (4-13); Mean Corpuscular HGB Conc 33.9 g/dL (31.5-36.5); Mean Corpuscular Volume 83 fL (80-100); NEUTROPHILS ABSOLUTE AUTO 7.82 K/mm3 (1.96-9.15); NEUTROPHILS PERCENT AUTO 67 % (41-73); NRBC ABSOLUTE 0.00 K/mm3 (0.00-0.02); NRBC Auto 0.0 /100 WBC (0.0-0.2); Platelet Count 364 K/mm3 (150-400); RDW Coefficient Variation 14.0 % (11.7-14.2); RDW Standard Deviation 42.7 fL (35.1-46.3)
--- NOTE | 2025-03-04 06:59 | NUR ---
SHIFT SUMMARY: Pt is admitted for hyponatremia and is a full code. Is alert and able to make needs known. ADLs have been a mix between 1-2 depending on activity. Denies pain or discomfort when asked. Telly noted sinus in the 80s with no events. Casey in place and drawing clear red tinged urine. FOUR CORNER FORMER MACHINE OPERATOR reported that there was an odor developing but was unable to describe a near equivalent. Will inform next nurse for follow up. Rested through most of the night with no issues. Did mention once that she would like the casey to be removed. LN informed her that the MD would like her urine to clear up per note that was found. And that any other conversation should be held with the provider about it. She didn t bring the topic up the rest of the shift.
[2025-03-04 07:07] LABS: Anion Gap 10.0 mmol/L (3-11); Blood Urea Nitrogen 18.0 mg/dL (8-24); CO2, Blood 22.0 mmol/L (21-32); Calcium, Blood 9.1 mg/dL (8.5-10.1); Chloride, Blood 105.0 mmol/L (98-108); Creatinine, Blood 0.77 mg/dL (0.40-1.00); Glucose, Blood 116.0 mg/dL (70-99); Potassium, Blood 4.0 mmol/L (3.5-5.5); Sodium, Blood 133.0 mmol/L (136-145)
[2025-03-04 07:59] VITALS: BP 171/66
[2025-03-04 17:15] VITALS: BP 132/48
--- NOTE | 2025-03-04 18:05 | NUR ---
NO ACUTE CHANGE, KEITH REMOVED, HARD TO FIND BLADDER ON BLADDER SCAN, HAS HAD MULTIPLE BMS WITH SOME VOIDING UNMEASURABLE, PATIENT CONTINUES TO BE PARANOID OF ANY MEDICAL TREATMENTS OR INTERVENTIONS. PATIENT IS UNABLE TO BE REORIENTED OR REDIRECTED. SON VISITED TODAY, FAMILY AWARE OF PATIENT BIPOLAR AND CYCLING MENTATION. CALL LIGHT WITH IN REACH, WILL RELAY TO PM HEYDI
[2025-03-04 19:37] VITALS: BP 146/57
[2025-03-04 23:53] VITALS: BP 117/56
--- NOTE | 2025-03-05 02:34 | NUR ---
PT IS A&OX3. ROOM AIR. ACHS. R HAND /LAC PIV. HAD ISSUES WITH URINARY RETENTION IN THE PAST. Q4 BLADDER SCANS. CURRENTLY THERE ARE NO BLOOD CLOTS PRESENT. 03/05 DOCTOR WILL COSULT UROLOGY IF PT IS STILL UNABLE TO URINATE. PT IS VERY PARANOID AND ANXIUS AT TIMES.
[2025-03-05 04:19] VITALS: BP 170/64
[2025-03-05 05:12] LABS: BASOPHILS ABSOLUTE AUTO 0.04 K/mm3 (0.00-0.23); BASOPHILS PERCENT AUTO 0 % (0-2); EOSINOPHILS ABSOLUTE AUTO 0.45 K/mm3 (0.00-0.68); EOSINOPHILS PERCENT AUTO 4 % (0-6); Hematocrit 37.7 % (33.0-51.0); Hemoglobin 12.6 g/dL (11.5-16.0); IMMATURE GRAN ABSOLUTE AUTO 0.04 K/mm3 (0.00-0.10); IMMATURE GRAN PERCENT AUTO 0 % (0-1); LYMPHOCYTES ABSOLUTE AUTO 3.12 K/mm3 (0.84-5.20); LYMPHOCYTES PERCENT AUTO 29 % (21-46); MONOCYTES ABSOLUTE AUTO 0.89 K/mm3 (0.16-1.47); MONOCYTES PERCENT AUTO 8 % (4-13); Mean Corpuscular HGB Conc 33.4 g/dL (31.5-36.5); Mean Corpuscular Volume 85 fL (80-100); NEUTROPHILS ABSOLUTE AUTO 6.38 K/mm3 (1.96-9.15); NEUTROPHILS PERCENT AUTO 58 % (41-73); NRBC ABSOLUTE 0.00 K/mm3 (0.00-0.02); NRBC Auto 0.0 /100 WBC (0.0-0.2); Platelet Count 371 K/mm3 (150-400); RDW Coefficient Variation 14.0 % (11.7-14.2); RDW Standard Deviation 43.1 fL (35.1-46.3)
[2025-03-05 05:42] VITALS: BP 143/53
[2025-03-05 05:59] LABS: Anion Gap 11.0 mmol/L (3-11); Blood Urea Nitrogen 26.0 mg/dL (8-24); CO2, Blood 22.0 mmol/L (21-32); Calcium, Blood 9.2 mg/dL (8.5-10.1); Chloride, Blood 103.0 mmol/L (98-108); Creatinine, Blood 0.97 mg/dL (0.40-1.00); Glucose, Blood 137.0 mg/dL (70-99); Potassium, Blood 4.3 mmol/L (3.5-5.5); Sodium, Blood 132.0 mmol/L (136-145)
[2025-03-05 08:09] VITALS: BP 142/60
--- NOTE | 2025-03-05 09:34 | NUR ---
NOTE PT REPORTS "I JUST WANNA GO HOME, I WANT OUT OF HERE." THIS RN OFFERED PRN PO ATARAX, PT REPORTS "I DONT NEED THAT." PT HAS Q4 BLADDER SCAN ORDERS. REPORTS "I TOLD THEM I DONT WANT ANY PROCEDURES." PT REFUSED BLADDER SCAN, PT EDUCATED ON BLADDER SCAN BENEFITS. PT VOIDED THIS AM. PT REPORTS BM YESTERDAY. VSS. IV SALINE LOCKED X2.
--- NOTE | 2025-03-05 09:40 | NUR ---
NOTE PT REPORTS "BUTTHOLE HURTS." THIS RN PUT POWDER TO GROIN AND UNDER BREASTS.
[2025-03-05] MEDS ORDERED: ARTIFICIAL TEAR15 M7 BOTHEYES (11:17)
[2025-03-05] MEDS ORDERED: HYDHCL25 PO (11:18)
[2025-03-05] MEDS ORDERED: MICONAZOLE NITR85 GM TOP (11:18)
[2025-03-05] MEDS ORDERED: SENN187 PO (11:19)
[2025-03-05] MEDS ORDERED: PANT40 PO (11:19)
[2025-03-05] MEDS ORDERED: TAMS.4ER PO (11:19)
--- NOTE | 2025-03-05 13:32 | NUR ---
DISCHARGE NOTE PT A&OX3. PT ADMITTED DUE TO HYPONATREMIA, PT REPORTS NO PAIN, NO SOB, NO CHEST PAIN. PT ABLE TO MAKE NEEDS KNOWN. PT CONT OF URINE AND BM. PT REPORTS LAST BM YESTERDAY. PT REFUSING BLADDER SCAN. PT VOIDING AND AMBULATING TO TOILET WITH FWW AND ASSISTANCE. PT HAS EYE REDNESS AND ITCHYNESS, MEDICATED WITH EYE DROPS. ORDERED DISCHARGE, SLOT OPERATIONS MANAGER ARRAMGED TRANSPORT, ELECTRIC PLATER COMPLETED DISCHARGE. PT IV AND TELE D/C. TELE NOTIFIED AND SENT TO PCU. PT TRANSPORT ARRIVED AT 1225. TRANSPORTED VIA WHEELCHAIR WITH PERSONAL BELONGINGS. THIS RN CALLED [facility] TO GIVE REPORT TO RN. PT VSS, PT ACHS, INSULIN COVERED FOR LUNCH TIME. DISCHARGE PACKET SENT WITH PT. PT WAS ON TELE, NO TELE REPORTS NOTED.
== END 2025-03-05 12:50 | DRG 641 ==
LOC: ER 11:30 → MEDS 11:31
PROVIDERS: Emergency Medicine; ADMIT Family Medicine
DX: E87.1 Hypo-osmolality and hyponatremia (principal); R33.9 Retention of urine, unspecified; E11.9 Type 2 diabetes mellitus without complications; I10 Essential (primary) hypertension; E86.0 Dehydration; E66.9 Obesity, unspecified; Z79.4 Long term (current) use of insulin; Z86.73 Personal history of transient ischemic attack (TIA), and cerebral infarction without residual deficits; Z68.36 Body mass index [BMI] 36.0-36.9, adult; Z87.11 Personal history of peptic ulcer disease; Z90.710 Acquired absence of both cervix and uterus; Z79.899 Other long term (current) drug therapy; Z79.02 Long term (current) use of antithrombotics/antiplatelets
CPT/HCPCS: 36415; 51701; 51702; 70450; 76770; 80048; 80053; 81001; 82947; 83036; 83930; 83935; 84300; 85025; 87637; 93005; 93010; 96372; 96374; 97110; 97116; 97161; 97165; 97530; 97535; 99285-25; A9270; G0378; J0360; J1650; J1815; J7030

== ENCOUNTER 2025-03-16 12:35 | Emergency (ER) | payer MEDICARE, OTHER ==
[~2025-03-16] VITALS: Ht 170.2 cm; Wt 108.9 kg
[~2025-03-16 12:35] MED LIST changes: +ARTIFICIAL TEAR15 M7 BOTHEYES; +HYDHCL25 PO; +MICONAZOLE NITR85 GM TOP; +PANT40 PO; +SENN187 PO; +TAMS.4ER PO
[2025-03-16 13:27] LABS: BASOPHILS ABSOLUTE AUTO 0.08 K/mm3 (0.00-0.23); BASOPHILS PERCENT AUTO 1 % (0-2); EOSINOPHILS ABSOLUTE AUTO 0.29 K/mm3 (0.00-0.68); EOSINOPHILS PERCENT AUTO 3 % (0-6); Hematocrit 38.4 % (33.0-51.0); Hemoglobin 13.1 g/dL (11.5-16.0); IMMATURE GRAN ABSOLUTE AUTO 0.11 K/mm3 (0.00-0.10); IMMATURE GRAN PERCENT AUTO 1 % (0-1); LYMPHOCYTES ABSOLUTE AUTO 2.16 K/mm3 (0.84-5.20); LYMPHOCYTES PERCENT AUTO 20 % (21-46); MONOCYTES ABSOLUTE AUTO 0.81 K/mm3 (0.16-1.47); MONOCYTES PERCENT AUTO 8 % (4-13); Mean Corpuscular HGB Conc 34.1 g/dL (31.5-36.5); Mean Corpuscular Volume 83 fL (80-100); NEUTROPHILS ABSOLUTE AUTO 7.39 K/mm3 (1.96-9.15); NEUTROPHILS PERCENT AUTO 68 % (41-73); NRBC ABSOLUTE 0.00 K/mm3 (0.00-0.02); NRBC Auto 0.0 /100 WBC (0.0-0.2); Platelet Count 427 K/mm3 (150-400); RDW Coefficient Variation 14.1 % (11.7-14.2); RDW Standard Deviation 42.8 fL (35.1-46.3)
[2025-03-16 14:02] LABS: Alanine Aminotransfer (ALT/SGP 27.0 U/L (12-78); Albumin, Blood 3.5 g/dL (3.4-5.0); Albumin/Globulin Ratio 1.0 (0.8-1.8); Anion Gap 10.0 mmol/L (3-11); Aspartate Aminotrans (AST/SGOT 14.0 U/L (12-37); Bilirubin, Total 0.3 mg/dL (0.1-1.0); Blood Urea Nitrogen 22.0 mg/dL (8-24); CO2, Blood 24.0 mmol/L (21-32); Calcium, Blood 9.0 mg/dL (8.5-10.1); Chloride, Blood 101.0 mmol/L (98-108); Creatinine, Blood 0.79 mg/dL (0.40-1.00); Globulin, Blood 3.5 g/dL (2.2-4.0); Glucose, Blood 296.0 mg/dL (70-99); Potassium, Blood 4.4 mmol/L (3.5-5.5); Sodium, Blood 131.0 mmol/L (136-145); Total Protein, Blood 7.0 g/dL (6.4-8.2)
[2025-03-16 14:52] LABS: Source, Urine Clean Catch
[2025-03-16 14:56] LABS: Bilirubin, Urine Neg (Neg); Color, Urine Yellow (P-Yellow); Glucose Qualitative, Urine 4+ (Neg); Ketones, Urine Neg (Neg); Leukocyte Esterase, Urine 2+ (Neg); Protein, Urine 1+ (Neg); Specific Gravity, Urine 1.015 (1.003-1.022); Urobilinogen, Urine NORM (Normal)
[2025-03-16 15:06] LABS: Red Blood Cells, Urine 0-2 /hpf (0-2)
[2025-03-16 15:51] LABS: Source, Urine Straight Cath
[2025-03-16 15:59] LABS: Bilirubin, Urine Neg (Neg); Color, Urine Yellow (P-Yellow); Glucose Qualitative, Urine 3+ (Neg); Ketones, Urine Neg (Neg); Leukocyte Esterase, Urine 3+ (Neg); Protein, Urine 2+ (Neg); Specific Gravity, Urine 1.015 (1.003-1.022); Urobilinogen, Urine NORM (Normal)
[2025-03-16 16:07] LABS: White Blood Cells, Urine 25-50 /hpf (0-5)
[2025-03-16] MEDS ORDERED: Cephalexin500 MG PO (16:50)
[2025-03-16 17:45] VITALS: BP 164/70
== END 2025-03-16 17:59 | disposition home or self-care (01) ==
LOC: ER 12:35
PROVIDERS: Emergency Medicine
DX: E11.65 Type 2 diabetes mellitus with hyperglycemia (principal); Z91.148 Patient's other noncompliance with medication regimen for other reason; I10 Essential (primary) hypertension; E78.5 Hyperlipidemia, unspecified; K21.9 Gastro-esophageal reflux disease without esophagitis; Z88.5 Allergy status to narcotic agent; Z88.8 Allergy status to other drugs, medicaments and biological substances
CPT/HCPCS: 51701; 80053; 80320; 81001; 83605; 85025; 93005; 93010; 99285; A9270